=== PATIENT | male | born 1995 | race Two or more races ===

== ENCOUNTER 2020-06-30 11:33 | Emergency (ER) | payer OTHER ==
[~2020-06-30] VITALS: Ht 165.1 cm; Wt 72.0 kg
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
[2020-06-30] MEDS ORDERED: IOHEXOL 300 MG/ML 100ML VIAL. IV ONE (12:15)
[2020-06-30] MEDS ORDERED: CONTRAST GIVEN. MC PRN (12:15)
[2020-06-30 12:29] LABS: BASO % 0 % (0-3); EOS % 1 % (0-3); HEMOGLOBIN 14.5 g/dL (13.0-17.5); LYMPH % 20 % (24-48); MEAN CORPUSCULAR HEMOGLOBIN 25 pg (25-35); MEAN CORPUSCULAR HGB CONC 33 g/dL (31-37); MEAN CORPUSCULAR VOLUME 75 fL (79-100); MONO # 0.4 x10^3/uL (0.0-1.1); MONO % 8 % (0-9); NEUT # 3.5 x10^3/uL (1.8-7.7); NEUT % 71 % (31-73); PLATELET COUNT 248 x10^3/uL (140-400); RED BLOOD COUNT 5.88 x10^6/uL (4.30-5.70); RED CELL DISTRIBUTION WIDTH 13.9 % (11.5-14.5); WHITE BLOOD COUNT 4.9 x10^3/uL (4.0-11.0)
[2020-06-30 12:30] LABS: CALCIUM 9.1 mg/dL (8.5-10.1); CREATININE 0.9 mg/dL (0.7-1.3); POTASSIUM 4.2 mmol/L (3.5-5.1)
[2020-06-30 12:36] LABS: ALBUMIN 4.1 g/dL (3.4-5.0); ALBUMIN/GLOBULIN RATIO 1.2 (1.0-1.7); TOTAL BILIRUBIN 0.5 mg/dL (0.2-1.0); TOTAL PROTEIN 7.4 g/dL (6.4-8.2)
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
[2020-06-30 13:28] VITALS: BP 113/59
== END 2020-06-30 14:45 | disposition home or self-care (01) ==
LOC: ER 11:33
DX: S30.811A Abrasion of abdominal wall, initial encounter (principal); S00.81XA Abrasion of other part of head, initial encounter; M54.5 Low back pain; V49.9XXA Car occupant (driver) (passenger) injured in unspecified traffic accident, initial encounter; Y93.89 Activity, other specified; Y92.413 State road as the place of occurrence of the external cause; Y99.8 Other external cause status
CPT/HCPCS: 36415; 70450; 71260; 72125; 74177; 80053; 85025; 99285; Q9967